=== PATIENT | male | born 1965 | race Caucasian/White ===

== ENCOUNTER 2018-04-02 20:00 | Observation (INO) ==
[2018-04-02] MEDS ORDERED: Sod Chloride 0.9% Inj 1,000 ML IV.SIG ONE (23:15)
[2018-04-02] MEDS ORDERED: Ketorolac Inj 30 MG/ML (IVP) Vial IV.PUSH ONE (23:15)
--- NOTE | 2018-04-02 23:23 | ED ---
HPI General Chief Complaint: Medical Clearance Stated Complaint: headache Time Seen by Provider: 04/02/18 22:41 Source: patient Mode of arrival: ambulatory Limitations: no limitations History of Present Illness HPI Narrative: 52-year-old male with PMH of chronic migraine presents to the ED for evaluation of the same. Patient states that this headache came on 2 days ago, onset suddenly. Associated with loss of central vision for approximately 1 hour. Also associated with nausea. Headaches begin in the frontal area and then migrate to the occipital region and down the back of the neck. Patient states that this progression is the same as his normal headaches. He estimates that he has these headaches about 5 times a week. He is followed by Dr. Nagy and has received a treatment with Aimovig with no improvement of symptoms. He states that his contacted Dr. Nagy and he was told to come to the emergency room for infusion of IV DHE. Related Data Home Medications Medication Instructions Recorded Confirmed clonazepam [Klonopin] 1 mg PO BID 04/03/18 04/03/18 gabapentin 600 mg PO QID 04/03/18 04/03/18 lamotrigine 75 mg PO HS 04/03/18 04/03/18 sertraline 75 mg PO DAILY 04/03/18 04/03/18 Allergies Allergy/AdvReac Type Severity Reaction Status Date / Time No Known Allergies Allergy Verified 04/02/18 21:19 Review of Systems ROS: all other systems reviewed are negative PMFSH Medical History Medical History Anxiety (Acute) Carpal tunnel syndrome (Acute) Degenerative disc disease (Acute) Herniated disc (Acute) Ocular migraine (Acute) Osteoarthritis (Acute) Panic disorder (Acute) Ulnar neuropathy (Acute) Social History Social History Substance History: No History of Abuse Second Hand Smoke Exposure: No Smoking Status: Never smoker How Often Do You Have a Drink Containing Alcohol: Monthly or less Recent Travel in [facility] within the Last 8 Weeks: No Recent Out of Country Travel within the Last 8 Weeks: No Exam Narrative Exam Narrative: GENERAL: Well-nourished, well-developed white male in no acute distress. SKIN: Focused skin assessment warm/dry. HEAD: Atraumatic. Normocephalic. EYES: Pupils equal and round. No scleral icterus. No injection or drainage. ENT: Pearly brizuela tympanic membranes bilaterally. No nasal bleeding or discharge. Mucous membranes pink and moist. NECK: Trachea midline. No JVD. No midline tenderness. No limitations to range of motion. CARDIOVASCULAR: Regular rate and rhythm. No murmur appreciated. RESPIRATORY: No accessory muscle use. Clear to auscultation. Breath sounds equal bilaterally. GASTROINTESTINAL: Abdomen soft, non-tender, nondistended. Hepatic and splenic margins not palpable. MUSCULOSKELETAL: No obvious deformities. No clubbing. No cyanosis. No edema. NEUROLOGICAL: Awake and alert. No obvious cranial nerve deficits. Motor grossly within normal limits. Normal speech. PSYCHIATRIC: Appropriate mood and affect; insight and judgment normal. Course Initial Documented Vital Signs Temperature 98.1 F 04/02/18 21:19 Pulse Rate 62 04/02/18 21:19 Respiratory Rate 16 04/02/18 21:19 Blood Pressure 138/68 04/02/18 21:19 Pulse Oximetry 96 04/02/18 21:19 Last Documented Vital Signs Temperature 98.1 F 04/02/18 21:19 Pulse Rate 62 04/02/18 21:19 Respiratory Rate 16 04/02/18 21:19 Blood Pressure 138/68 04/02/18 21:19 Pulse Oximetry 98 04/02/18 23:16 Medical Decision Making MDM Narrative Medical decision making narrative: 52-year-old male with PMH of chronic migraine presents to the ED for evaluation of 3-day history of headache. The headache pain is the same as his normal headache. He estimates up to 5 headaches per week. He contacted his neurologist, Dr. Nagy and was sent to the ED for admission and administration of IV DHE. Vitals reviewed. No focal neuro deficits on exam. IV was established. Patient was administered 1 L normal saline, IV Toradol, Zofran, Benadryl. I spoke with Dr. Nagy. He does not recommend any additional imaging at this time. He would like the patient admitted to the medicine team and consult placed for neurology in the morning. He plans to administer IV DHE. Patient is agreeable to this plan. I spoke with Dr. Johnston who agrees to accept the patient to the medicine service. Approximately 30 minutes after admission the patient states that he is very anxious. Klonopin ordered. The patient states that he is "too anxious to continue treatment." I explained the risks of leaving without further treatment, up to and including . The patient acknowledged understanding of these risks but still chose to leave AGAINST MEDICAL ADVICE. Medical Screen Exam Complete: Yes Emergency Medical Condition: Yes Differential Diagnosis Differential Diagnosis: Cephalgia versus ocular migraine versus tension headache versus cluster headache versus other Discharge Plan Discharge Disposition Patient Disposition: 07 Against Medical Advice Discharge Condition Condition: Stable Discharge Order Discharge Orders: AMA Discharge (Routine); Ordered 04/03/18 Ordered By: Lien Langford Discharge Details Diagnosis: Chronic headache Physicians Team ED Provider: Negro Rodriguez ED Midlevel Provider: Lien Langford Primary Care Provider: Rosie Ashton Attending Provider: Figueroa Johnston Discharge Interventions Interventions: ED Discharge Assessment Last Done: 04/03/18 00:28 Status ED Status: Left Department Discharge Information Discharge Date/Time: 04/03/18 00:28
[2018-04-02] MEDS ORDERED: Sod Chloride 0.9% Inj 1,000 ML IV.CONT SCH (23:45)
[2018-04-02] MEDS ORDERED: Bisacodyl 10 MG Supp RECTAL PRN (23:55)
[2018-04-02] MEDS ORDERED: Acetaminophen 325 MG Tablet PO PRN (23:55)
[2018-04-02] MEDS ORDERED: Morphine Inj 4 MG/ML Vial IV.PUSH PRN (23:58)
[2018-04-03] MEDS ORDERED: clonazePAM 1 MG Tablet PO ONE (00:17)
== END 2018-04-03 00:30 | disposition home or self-care (01) ==
LOC: NEDA 20:00 → NEPE 20:00 → NEDA 04-03 00:28
PROVIDERS: ADMIT Hospitalist; ATTEND Hospitalist
DX: M19.90 Unspecified osteoarthritis, unspecified site; F41.0 Panic disorder [episodic paroxysmal anxiety]; G43.109 Migraine with aura, not intractable, without status migrainosus